=== PATIENT | male | born 1985 | race African-American/Black ===

== ENCOUNTER 2019-02-06 09:33 | Emergency (ER) | payer MEDICAID ==
[~2019-02-06] VITALS: Ht 170.2 cm; Wt 82.0 kg
[2019-02-06] MEDS ORDERED: CEFTRIAXONE SODIUM 250 MG/VIAL IM ONE (11:00)
[2019-02-06] MEDS ORDERED: AZITHROMYCIN 500 MG TABLET PO SCH (11:00)
[2019-02-06 11:08] LABS: CLARITY URINE CLEAR (CLEAR); COLOR URINE YELLOW (YELLOW); KETONES URINE NEGATIVE (NEGATIVE); LEUKOCYTE ESTERASE URINE 2+ (NEGATIVE); NITRITE URINE NEGATIVE (NEGATIVE); OCCULT BLOOD URINE NEGATIVE (NEGATIVE); PH URINE 5.5 (4.5-8.0); PROTEIN URINE NEGATIVE (NEGATIVE); SPECIFIC GRAVITY URINE 1.022 (1.005-1.030)
[2019-02-06] MEDS ORDERED: STERILE WATER FOR INJECTION 10ML VIAL ONE (11:24)
[2019-02-06] MEDS: AZITHROMYCIN 500 MG TABLET PO SCH ×2 (11:28→11:50)
[2019-02-06 11:56] VITALS: BP 136/66
== END 2019-02-06 12:04 | disposition home or self-care (01) ==
LOC: ER 09:33
DX: A64 Unspecified sexually transmitted disease (principal); N39.0 Urinary tract infection, site not specified
CPT/HCPCS: 81003; 87086; 96372; 99283; A4216; J0696